=== PATIENT | female | born 1990 ===

== ENCOUNTER 2017-10-02 18:27 | Emergency (ER) | payer OTHER ==
[2017-10-02 18:36] VITALS: BP 120/79; PULSE 94; RESP 16; TEMP 98; O2SAT 99
[2017-10-02] MEDS ORDERED: Tetanus/Diphtheria Toxoids 0.5 ml Syringe IM ONE ×2 (19:46→19:50)
--- NOTE | 2017-10-02 19:55 | C.PDOC ---
History Of Present Illness 27 year old female presents to the ER with a complaint of an abrasion to the right thumb after she injured herself with the sharp edge of a mirror. Patient called her PMD who advised her to come to the ER for a tetanus vaccination. Patient denies any other complaints at this time. Time Seen by Provider: 10/02/17 19:22 Chief Complaint (Nursing): Abnormal Skin Integrity History Per: Patient History/Exam Limitations: no limitations Onset/Duration Of Symptoms: Hrs Current Symptoms Are (Timing): Still Present Location Of Injury: Right: Hand (Thumb) Quality Of Symptoms: Other (Abrasion) Recent travel outside of the [place]: No Past Medical History Reviewed: Historical Data, Nursing Documentation, Vital Signs Vital Signs: Last Vital Signs Temp 98 F 10/02/17 18:33 Pulse 94 H 10/02/17 18:33 Resp 16 10/02/17 18:33 BP 120/79 10/02/17 18:33 Pulse Ox 99 10/02/17 21:04 - Medical History PMH: Hyperthyroidism Family History: States: Unknown Family Hx - Social History Hx Alcohol Use: No Hx Substance Use: No - Immunization History Hx Tetanus Toxoid Vaccination: No Hx Influenza Vaccination: No Hx Pneumococcal Vaccination: No Review Of Systems Skin: Positive for: Other (Abrasion) Neurological: Negative for: Weakness, Numbness Physical Exam - Physical Exam Appears: Non-toxic, No Acute Distress Skin: Warm, Dry Head: Atraumatic, Normacephalic Eye(s): bilateral: Normal Inspection Extremity: Normal ROM (x4), No Tenderness, Capillary Refill (<2 seconds), No Deformity, No Swelling, Other (Punctate abrasion to palmar aspect of right thumb. No laceration or foreign body.) Pulses: Left Radial: Normal, Right Radial: Normal Neurological/Psych: Oriented x3, Normal Speech, Normal Motor, Normal Sensation ED Course And Treatment O2 Sat by Pulse Oximetry: 99 (room air) Pulse Ox Interpretation: Normal Progress Note: Tetanus vaccination administered. Patient given proper wound care instructions and advised to follow up with PMD. Disposition Counseled Patient/Family Regarding: Diagnosis, Need For Followup, Rx Given - Disposition Disposition: HOME/ ROUTINE Disposition Time: 19:53 Condition: STABLE Additional Instructions: Please follow up with PMD or OB Clean wound or apply antibacterial oint return to ER if any concerns or redness, swelling, warmth to area Instructions: Skin Abrasions (DC) Forms: [employer] (Norwegian) - Clinical Impression Clinical Impression: Abrasion of thumb - PA / ENAMEL SHADER / Resident Statement MD/DO has reviewed & agrees with the documentation as recorded. - Scribe Statement The provider has reviewed the documentation as recorded by the Scribe Louis Apodaca All medical record entries made by the Scribe were at my direction and personally dictated by me. I have reviewed the chart and agree that the record accurately reflects my personal performance of the history, physical exam, medical decision making, and the department course for this patient. I have also personally directed, reviewed, and agree with the discharge instructions and disposition.
== END 2017-10-02 20:01 | disposition home or self-care (01) ==
LOC: C.ER 18:27
DX: S60.311A Abrasion of right thumb, initial encounter (principal); W22.8XXA Striking against or struck by other objects, initial encounter; Y92.9 Unspecified place or not applicable; Z23 Encounter for immunization

== ENCOUNTER 2017-11-28 12:55 | Emergency (ER) | payer OTHER ==
--- NOTE | 2017-11-28 14:06 | OBHP ---
Datetime: 11/28/2017 13:52 IP Adm Impression: , intrauterine Admit Comment, IP Provider: a 34week gdma1 decreased fm from morning, no ctxs, vb , lof obhx primi mh de med pnv all nkda psh abdominal surgery for volovlus soch de fs 76 a/p at 34weeks dec fm nst bpp cont close observation Pelvic Type - PN: Adequate Extremities - PN: Normal Abdomen - PN: Normal Back - PN: Normal Breast - PN: Normal Lungs - PN: Normal Heart - PN: Normal Thyroid - PN: Normal Neurologic - PN: Normal HEENT - PN: Normal General - PN: Normal FHR - Baseline A Provider: 140 Contraction Comments Provider: none EGA AdmitDate IP: 33.6 Vital Signs Provider: Reviewed; Within Normal Limits IP Chief Complaint: Decreased movement NICHD Variability Prov Fetus A: Moderate 6-25bpm NICHD Accel Fetus A IP Provider: 15X15 FHR Category Provider Fetus A: Category I Genitourinary Exam: Normal DTRs - PN: Normal
--- NOTE | 2017-11-28 15:41 | US ---
Date of service: 11/28/2017 PROCEDURE: Limited obstetrical ultrasound examination HISTORY: dec movement COMPARISON: Not available TECHNIQUE: Transabdominal FINDINGS: Ultrasound examination demonstrates a single live intrauterine gestation in cephalic presentation. The heart rate is 159 beats per minute. A normal quantity of amniotic fluid is visualized. A right fundal placenta is noted. There is no evidence of placenta previa. The cervix is closed and measures 3.3 cm in length. biometry yields a gestational age of 34 weeks 1 day. The MARCELLUS by ultrasound is 01/08/2018. The EFW is 2264 g. Review of anatomy shows a 4 chamber heart. Fluid distends the stomach and urinary bladder. Two normal kidneys are demonstrated without evidence of hydronephrosis. A three-vessel umbilical cord is seen. The anterior abdominal wall is intact. No abnormality of the spine is evident. Umbilical arterial duplex Doppler interrogation demonstrates an S/D ratio of 2.7. This is within normal limits. A limited biophysical profile examination yields a score of 8 out of 8. IMPRESSION: Single live intrauterine gestation in cephalic presentation. heart rate 159 beats per minute. EFW is 2264 g. Cervix closed. No previa. No anatomic abnormality. Biophysical profile score 8 out of 8.
--- NOTE | 2017-11-28 16:08 | OBHP ---
Datetime: 11/28/2017 13:52 Admit Comment, IP Provider: a 34week gdma1 decreased fm from morning, no ctxs, vb , lof obhx primi mh de med pnv all nkda psh abdominal surgery for volovlus soch de fs 76 a/p at 34weeks dec fm nst bpp cont close observation nst reatve bpp 8/8 plan dc home ptl givern p hy f/u dr arias
--- NOTE | 2017-11-28 16:08 | OBDCSUM ---
Datetime: 11/28/2017 16:06 Discharged to, Provider: Home Follow up at, Provider: as scheduled Follow up in weeks, Provider: dr hugo Grayson Comment, Provider: dc home ptl givern p hy f/u dr hugo Grayson Diagnosis Prov Other: 34 wek nst
[2017-11-28 23:48] VITALS: BP 104/68; PULSE 65; RESP 20; TEMP 98.4
== END 2017-11-28 16:45 | disposition home or self-care (01) ==
LOC: C.EROB 12:55
DX: O36.8130 Decreased fetal movements, third trimester, not applicable or unspecified (principal); Z3A.34 34 weeks gestation of pregnancy

== ENCOUNTER 2017-12-09 19:06 | Emergency (ER) | payer OTHER ==
--- NOTE | 2017-12-09 20:14 | OBHP ---
Datetime: 12/09/2017 19:14 IP Adm Impression: , intrauterine IP Chief Complaint Other: cramping and vaginal discharge Admit Comment, IP Provider: at 35+we here c/o pinkinsh vaginal dischare . c/o crampinh when bab y moves no ctxs, v , lof+fm.pt was recently duagnised with gdma1 and chlesostasis of preg obhx primi pmh hypothyrpidism, gdma1,choleostatsis of preg med pnv,synthroid, metfomin all nkda psh de soch de fs 76 a/p at 35+weks hetre with vaginitis/choleostasis of preg/hypo/gdma1 npo/ivf betamethasone terazol bp/nst on sunday f/u dr arias Pelvic Type - PN: Adequate Extremities - PN: Normal Abdomen - PN: Normal Back - PN: Normal Breast - PN: Normal Lungs - PN: Normal Heart - PN: Normal Thyroid - PN: Normal Neurologic - PN: Normal HEENT - PN: Normal General - PN: Normal FHR - Baseline A Provider: 130 Contraction Comments Provider: occ Vital Signs Provider: Reviewed; Within Normal Limits NICHD Variability Prov Fetus A: Absent - Undetectable NICHD Accel Fetus A IP Provider: [id number] FHR Category Provider Fetus A: Category I Dilatation, Provider: 0 Effacement, Provider: 0 Station, Provider: -3 Genitourinary Exam: Normal DTRs - PN: Normal Datetime: 11/28/2017 13:52 EGA AdmitDate IP: 33.6
[2017-12-09] MEDS ORDERED: Betamethasone Soluspan 30 mg/5mL Inj Susp IM STA (20:16)
[2017-12-09] MEDS ORDERED: Lactated Ringer's 1,000 ML IV SCH (20:30)
[2017-12-09] MEDS ORDERED: Dextrose 5%/Lactated Ringer's 1,000 ML IV SCH (20:30)
[2017-12-10 02:21] VITALS: BP 124/77; PULSE 59; RESP 18; TEMP 98.8
== END 2017-12-09 22:15 | disposition home or self-care (01) ==
LOC: C.EROB 19:06
DX: O23.593 Infection of other part of genital tract in pregnancy, third trimester (principal); O26.613 Liver and biliary tract disorders in pregnancy, third trimester; K83.1 Obstruction of bile duct; Z3A.35 35 weeks gestation of pregnancy
CPT/HCPCS: 82948; 99283; J0702; J7120

== ENCOUNTER 2017-12-10 21:01 | Emergency (ER) | payer OTHER ==
[2017-12-10] MEDS ORDERED: Betamethasone Soluspan 30 mg/5mL Inj Susp IM ONE (21:45)
== END 2017-12-10 22:25 | disposition home or self-care (01) ==
LOC: C.EROB 21:01
DX: Z36.89 Encounter for other specified antenatal screening (principal)
CPT/HCPCS: 96372; J0702